=== PATIENT | male | born 1985 | race Caucasian/White ===

== ENCOUNTER 2016-09-04 10:36 | Emergency (ER) | payer OTHER ==
--- NOTE | 2016-09-04 11:42 | EDDOCDS ---
Nurse's Notes [facility] Name: Andrzej Medina Age: 30 yrs Sex: Male : 1985 Arrival Date: 09/04/2016 Time: 10:36 Bed Triage 3 Private MD: OHAlexey MENDOZA Diagnosis: Strain of muscle, fascia and tendon of lower back-degenerative disc disease Presentation: 09/04 10:50 Presenting complaint: Patient states: Been having sharp back pain for approximately 1 jo3 week and while trying to put on boots this morning, felt low back lock up and pt fell. Continues to have mid-low back pain. Acute neurological deficits are not present. Mechanism of Injury: No Mechanism of Injury. Adult Sepsis Screening: The patient does not have new or worsening altered mentation. Patient's respiratory rate is less than 22. Systolic blood pressure is greater than 100. Patient has a qSOFA score of 0- Negative Sepsis Screen. Suicide/Homicide risk assessment- the patient denies having any suicidal and/or homicidal ideations and does not present with any other emotional, behavioral or mental health complaints. 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 Transition of care: patient was not received from another setting of care. 10:50 Acuity: MIMI Level 4 jo3 10:50 Method Of Arrival: Walkin/Carried/Asstd jo3 Triage Assessment: 10:55 General: Appears in no apparent distress, Behavior is appropriate for age, cooperative. jo3 Pain: Pain currently is 8 out of 10 on a pain scale. HIV screening NA for this visit Offered previously. Neurological: Level of Consciousness is awake, alert, Oriented to person, place, time. Respiratory: Airway is patent Respiratory effort is even, unlabored. Derm: Skin is pink, warm & dry. Historical: - Allergies: No known drug Allergies; - Home Meds: 1. Singulair 10 mg Oral tab 1 tab once daily 2. Claritin 10 mg Oral tab 1 tab once daily - PMHx: environmental allergies; - PSHx: Appendectomy; right foot; - Social history: Smoking status: No barriers to communication noted, The patient speaks fluent [place] Rican, Speaks appropriately for age, Smoking status: Patient states former smoker of tobacco. - Family history: Not pertinent. - : The pt / caregiver states he / she is not on anticoagulants. Home medication list is obtained from the patient. - Exposure Risk Screening:: None identified. Screenin:30 Screening information is obtained from the patient. Screening information is obtained jo3 from the patient. Fall risk: No risks identified. Assistance ADL's: requires no assistance with activities of daily living. Abuse/DV Screen: The patient / caregiver reports he/she is: not in a situation that causes fear, pain or injury. Nutritional screening: No deficits noted. Advance Directives: There is no active DNR order. home support is adequate. Assessment: 11:30 General: Appears in no apparent distress, uncomfortable. Neurological: Level of jo3 Consciousness is awake, alert, Oriented to person, place, time. Respiratory: Airway is patent Respiratory effort is even, unlabored. Derm: Skin is pink, warm & dry. Vital Signs: 10:38 BP 165 / 92; Pulse 62; Resp 18; Temp 98.4(O); Pulse Ox 100% on R/A; Weight 95.25 kg ct3 (R); Height 6 ft. 0 in. (182.88 cm) (R); Pain 9/10; 10:38 Body Mass Index 28.48 (95.25 kg, 182.88 cm) ct3 Vitals: 10:38 Log In Time: September 04, 2016 at 10:36. ct3 ED Course: 10:37 Patient visited by Noy Aaron PCA. ct3 10:37 Patient moved to Waiting ct3 10:38 [facility] is Private Physician. ct3 10:39 Patient moved to Pre RCE ct3 10:51 Triage Initiated jo3 10:56 Patient visited by Sheree Alvarado RN. jo3 11:04 Patient moved to Triage 3 jb5 11:13 [facility] ar2 11:13 Seb Cabello MD is Attending Physician. ar2 11:13 Patient visited by Júnior Witt PA-C. ar2 11:30 The patient / caregiver is instructed regarding the plan of care and ED course. jo3 11:30 No IV's were initiated during this patient's visit. No procedures done that require jo3 assistance. 11:32 [facility] is Referral Physician. ar2 Order Results: There are currently no results for this order. Outcome: 11:30 Discharge Assessment: Patient awake, alert and oriented x 3. No cognitive and/or jo3 functional deficits noted. Patient verbalized understanding of disposition instructions. patient administered narcotics - no. The following High Risk Discharge criteria are identified: None. Discharged to home ambulatory. Condition: stable. Discharge instructions given to patient, Instructed on discharge instructions, follow up and referral plans. medication usage, Demonstrated understanding of instructions, medications, Pt was receptive of discharge instructions/ teaching. Prescriptions given X 2. No special radiology studies were completed. Property sent home with patient. 11:33 Discharge ordered by Provider. ar2 11:41 Patient left the ED. jo3 Signatures: Ivonne Zaidi, FINANCIAL EXAMINER FINANCIAL EXAMINER jb5 Sheree AlvaradoRN RN jo3 Júnior Witt, PALeeannaC PANila ar2 Noy Aaron, FINANCIAL EXAMINER FINANCIAL EXAMINER ct3 MTDD
--- NOTE | 2016-09-04 11:42 | EDDOCDS ---
Physician Documentation [facility] Name: Andrzej Medina Age: 30 yrs Sex: Male : 1985 Arrival Date: 09/04/2016 Time: 10:36 Bed Triage 3 [facility]: 09/04/16 11:33 Discharged to Home/Self Care. Impression: Strain of muscle, fascia and tendon of lower back - degenerative disc disease. - Condition is Stable. - Discharge Instructions: Muscle Strain, Degenerative Disk Disease. - Prescriptions for Ibuprofen 800 mg Oral Tablet - take 1 tablet by ORAL route every 8 hours As needed take with food; 30 tablet. Cyclobenzaprine 10 mg Oral Tablet - take 1 tablet by ORAL route 3 times per day As needed; 15 tablet. - Medication Reconciliation, Local Pharmacy Hours form. - [facility]; When: Call to arrange an appointment; Reason: Recheck today's complaints, Continuance of care. Follow up: Emergency Department; When: As needed; Reason: severe pain, numbness/weakness of legs, bowel/bladder dysfunction. - Problem is new. - Symptoms are unchanged. - Notes: recommend against heavy lifting, PT, or other aggrevating activities now through the weekend. Historical: - Allergies: No known drug Allergies; - Home Meds: 1. Singulair 10 mg Oral tab 1 tab once daily 2. Claritin 10 mg Oral tab 1 tab once daily - PMHx: environmental allergies; - PSHx: Appendectomy; right foot; - Social history: Smoking status: No barriers to communication noted, The patient speaks fluent Cymraes, Speaks appropriately for age, Smoking status: Patient states former smoker of tobacco. - Family history: Not pertinent. - : The pt / caregiver states he / she is not on anticoagulants. Home medication list is obtained from the patient. - Exposure Risk Screening:: None identified. Vital Signs: 09/04 10:38 BP 165 / 92; Pulse 62; Resp 18; Temp 98.4(O); Pulse Ox 100% on R/A; Weight 95.25 kg / ct3 209.99 lbs (R); Height 6 ft. 0 in. (182.88 cm) (R); Pain 9/10; 10:38 Body Mass Index 28.48 (95.25 kg, 182.88 cm) ct3 Signatures: Sheree Alvarado,RN RN jo3 Júnior Witt PA-C PA-C ar2 MTDD
--- NOTE | 2016-09-06 12:42 | EDDOCDS ---
Nurse's Notes [facility] Name: Andrzej Medina Age: 30 yrs Sex: Male : 1985 Arrival Date: 09/04/2016 Time: 10:36 Bed Triage 3 Private MD: IL[facility]ey MENDOZA Diagnosis: Strain of muscle, fascia and tendon of lower back-degenerative disc disease Presentation: 09/04 10:50 Presenting complaint: Patient states: Been having sharp back pain for approximately 1 jo3 week and while trying to put on boots this morning, felt low back lock up and pt fell. Continues to have mid-low back pain. Acute neurological deficits are not present. Mechanism of Injury: No Mechanism of Injury. Adult Sepsis Screening: The patient does not have new or worsening altered mentation. Patient's respiratory rate is less than 22. Systolic blood pressure is greater than 100. Patient has a qSOFA score of 0- Negative Sepsis Screen. Suicide/Homicide risk assessment- the patient denies having any suicidal and/or homicidal ideations and does not present with any other emotional, behavioral or mental health complaints. 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 Transition of care: patient was not received from another setting of care. 10:50 Acuity: MIMI Level 4 jo3 10:50 Method Of Arrival: Walkin/Carried/Asstd jo3 Triage Assessment: 10:55 General: Appears in no apparent distress, Behavior is appropriate for age, cooperative. jo3 Pain: Pain currently is 8 out of 10 on a pain scale. HIV screening NA for this visit Offered previously. Neurological: Level of Consciousness is awake, alert, Oriented to person, place, time. Respiratory: Airway is patent Respiratory effort is even, unlabored. Derm: Skin is pink, warm & dry. Historical: - Allergies: No known drug Allergies; - Home Meds: 1. Singulair 10 mg Oral tab 1 tab once daily 2. Claritin 10 mg Oral tab 1 tab once daily - PMHx: environmental allergies; - PSHx: Appendectomy; right foot; - Social history: Smoking status: No barriers to communication noted, The patient speaks fluent Guyanese, Speaks appropriately for age, Smoking status: Patient states former smoker of tobacco. - Family history: Not pertinent. - : The pt / caregiver states he / she is not on anticoagulants. Home medication list is obtained from the patient. - Exposure Risk Screening:: None identified. Screenin:30 Screening information is obtained from the patient. Screening information is obtained jo3 from the patient. Fall risk: No risks identified. Assistance ADL's: requires no assistance with activities of daily living. Abuse/DV Screen: The patient / caregiver reports he/she is: not in a situation that causes fear, pain or injury. Nutritional screening: No deficits noted. Advance Directives: There is no active DNR order. home support is adequate. Assessment: 11:30 General: Appears in no apparent distress, uncomfortable. Neurological: Level of jo3 Consciousness is awake, alert, Oriented to person, place, time. Respiratory: Airway is patent Respiratory effort is even, unlabored. Derm: Skin is pink, warm & dry. Vital Signs: 10:38 BP 165 / 92; Pulse 62; Resp 18; Temp 98.4(O); Pulse Ox 100% on R/A; Weight 95.25 kg ct3 (R); Height 6 ft. 0 in. (182.88 cm) (R); Pain 9/10; 10:38 Body Mass Index 28.48 (95.25 kg, 182.88 cm) ct3 Vitals: 10:38 Log In Time: September 04, 2016 at 10:36. ct3 ED Course: 10:37 Patient visited by Noy Aaron PCA. ct3 10:37 Patient moved to Waiting ct3 10:38 [facility] is Private Physician. ct3 10:39 Patient moved to Pre RCE ct3 10:51 Triage Initiated jo3 10:56 Patient visited by Sheree Alvarado RN. jo3 11:04 Patient moved to Triage 3 jb5 11:13 [facility] ar2 11:13 Seb Cabello MD is Attending Physician. ar2 11:13 Patient visited by Júnior Witt PA-C. ar2 11:30 The patient / caregiver is instructed regarding the plan of care and ED course. jo3 11:30 No IV's were initiated during this patient's visit. No procedures done that require jo3 assistance. 11:32 [facility] is Referral Physician. ar2 11:49 [facility] Payment Agreement was scanned into [employer] and attached to record. mm15 15:38 T-Sheet-- Draft Copy was scanned into [employer] and attached to record. gb Order Results: There are currently no results for this order. Outcome: 11:30 Discharge Assessment: Patient awake, alert and oriented x 3. No cognitive and/or jo3 functional deficits noted. Patient verbalized understanding of disposition instructions. patient administered narcotics - no. The following High Risk Discharge criteria are identified: None. Discharged to home ambulatory. Condition: stable. Discharge instructions given to patient, Instructed on discharge instructions, follow up and referral plans. medication usage, Demonstrated understanding of instructions, medications, Pt was receptive of discharge instructions/ teaching. Prescriptions given X 2. No special radiology studies were completed. Property sent home with patient. 11:33 Discharge ordered by Provider. ar2 11:41 Patient left the ED. jo3 Signatures: Natalie Diaz, Reg Reg gb Ivonne Zaidi, BOREMATIC MACHINE OPERATOR BOREMATIC MACHINE OPERATOR jb5 Shreee Alvarado RN RN jo3 Júnior Witt PA-C PANila ar2 Noy Aaron, BOREMATIC MACHINE OPERATOR BOREMATIC MACHINE OPERATOR ct3 Branden Joyce mm15 Chart Complete ALEENA
--- NOTE | 2016-09-06 12:42 | EDDOCDS ---
Physician Documentation [facility] Name: Andrzej Medina Age: 30 yrs Sex: Male : 1985 Arrival Date: 09/04/2016 Time: 10:36 Bed Triage 3 [facility]: 09/04/16 11:33 Discharged to Home/Self Care. Impression: Strain of muscle, fascia and tendon of lower back - degenerative disc disease. - Condition is Stable. - Discharge Instructions: Muscle Strain, Degenerative Disk Disease. - Prescriptions for Ibuprofen 800 mg Oral Tablet - take 1 tablet by ORAL route every 8 hours As needed take with food; 30 tablet. Cyclobenzaprine 10 mg Oral Tablet - take 1 tablet by ORAL route 3 times per day As needed; 15 tablet. - Medication Reconciliation, Local Pharmacy Hours form. - [facility]; When: Call to arrange an appointment; Reason: Recheck today's complaints, Continuance of care. Follow up: Emergency Department; When: As needed; Reason: severe pain, numbness/weakness of legs, bowel/bladder dysfunction. - Problem is new. - Symptoms are unchanged. - Notes: recommend against heavy lifting, PT, or other aggrevating activities now through the weekend. Historical: - Allergies: No known drug Allergies; - Home Meds: 1. Singulair 10 mg Oral tab 1 tab once daily 2. Claritin 10 mg Oral tab 1 tab once daily - PMHx: environmental allergies; - PSHx: Appendectomy; right foot; - Social history: Smoking status: No barriers to communication noted, The patient speaks fluent Armenian, Speaks appropriately for age, Smoking status: Patient states former smoker of tobacco. - Family history: Not pertinent. - : The pt / caregiver states he / she is not on anticoagulants. Home medication list is obtained from the patient. - Exposure Risk Screening:: None identified. Vital Signs: 09/04 10:38 BP 165 / 92; Pulse 62; Resp 18; Temp 98.4(O); Pulse Ox 100% on R/A; Weight 95.25 kg / ct3 209.99 lbs (R); Height 6 ft. 0 in. (182.88 cm) (R); Pain 9/10; 10:38 Body Mass Index 28.48 (95.25 kg, 182.88 cm) ct3 MDM: :49 [facility] Payment Agreement was scanned into [employer] and attached to record. mm15 49 Financial registration complete. mm15 15:38 T-Sheet-- Draft Copy was scanned into [employer] and attached to record. gb Signatures: Natalie Diaz, Reg Reg gb Sheree Alvarado RN RN jo3 Júnior Witt PA-C PA-C ar2 Branden Joyce mm15 The chart was reviewed and I authenticate all verbal orders and agree with the evaluation and treatment provided.Attachments: [facility] Payment Agreement mm15 15:38 T-Sheet-- Draft Copy gb Chart Complete MTDD
--- NOTE | 2016-09-06 12:42 | EDDOCDS ---
Physician Documentation [facility] Name: Andrzej Medina Age: 30 yrs Sex: Male : 1985 Arrival Date: 09/04/2016 Time: 10:36 Bed Triage 3 [facility] Disposition: 09/04/16 11:33 Discharged to Home/Self Care. Impression: Strain of muscle, fascia and tendon of lower back - degenerative disc disease. - Condition is Stable. - Discharge Instructions: Muscle Strain, Degenerative Disk Disease. - Prescriptions for Ibuprofen 800 mg Oral Tablet - take 1 tablet by ORAL route every 8 hours As needed take with food; 30 tablet. Cyclobenzaprine 10 mg Oral Tablet - take 1 tablet by ORAL route 3 times per day As needed; 15 tablet. - Medication Reconciliation, Local Pharmacy Hours form. - [facility]; When: Call to arrange an appointment; Reason: Recheck today's complaints, Continuance of care. Follow up: Emergency Department; When: As needed; Reason: severe pain, numbness/weakness of legs, bowel/bladder dysfunction. - Problem is new. - Symptoms are unchanged. - Notes: recommend against heavy lifting, PT, or other aggrevating activities now through the weekend. Historical: - Allergies: No known drug Allergies; - Home Meds: 1. Singulair 10 mg Oral tab 1 tab once daily 2. Claritin 10 mg Oral tab 1 tab once daily - PMHx: environmental allergies; - PSHx: Appendectomy; right foot; - Social history: Smoking status: No barriers to communication noted, The patient speaks fluent Colombian, Speaks appropriately for age, Smoking status: Patient states former smoker of tobacco. - Family history: Not pertinent. - : The pt / caregiver states he / she is not on anticoagulants. Home medication list is obtained from the patient. - Exposure Risk Screening:: None identified. Vital Signs: 09/04 10:38 BP 165 / 92; Pulse 62; Resp 18; Temp 98.4(O); Pulse Ox 100% on R/A; Weight 95.25 kg / ct3 209.99 lbs (R); Height 6 ft. 0 in. (182.88 cm) (R); Pain 9/10; 10:38 Body Mass Index 28.48 (95.25 kg, 182.88 cm) ct3 MDM: :49 [facility] Payment Agreement was scanned into [employer] and attached to record. mm15 49 Financial registration complete. mm15 15:38 T-Sheet-- Draft Copy was scanned into [employer] and attached to record. gb Signatures: Natalie Diaz, Reg Reg gb Sheree Alvarado RN RN jo3 Júnior Witt PA-C PA-C ar2 Branden Joyce mm15 The chart was reviewed and I authenticate all verbal orders and agree with the evaluation and treatment provided.Attachments: [facility] Payment Agreement mm15 15:38 T-Sheet-- Draft Copy gb Chart Complete MTDD
== END 2016-09-04 11:41 | disposition home or self-care (01) ==
LOC: M ED 10:36
DX: S39.012A Strain of muscle, fascia and tendon of lower back, initial encounter (principal); X58.XXXA Exposure to other specified factors, initial encounter; Y92.89 Other specified places as the place of occurrence of the external cause; Y93.89 Activity, other specified; Y99.8 Other external cause status; J30.9 Allergic rhinitis, unspecified; Z79.899 Other long term (current) drug therapy; Z87.891 Personal history of nicotine dependence